=== PATIENT | female | born 1990 ===

== ENCOUNTER 2025-05-10 10:27 | Outpatient (CLI) | payer OTHER | END 2025-05-10 10:28 | disposition home or self-care (01) | LOC: PRENATAL 10:27 | PROVIDERS: ATTEND Obstetrics & Gynecology Maternal & Fetal Medicine | DX: O44.00 Complete placenta previa NOS or without hemorrhage, unspecified trimester (principal); Z3A.20 20 weeks gestation of pregnancy ==

== ENCOUNTER 2025-07-01 09:34 | Outpatient (CLI) | payer OTHER | END 2025-07-01 09:36 | disposition home or self-care (01) | LOC: PRENATAL 09:34 | PROVIDERS: ATTEND Obstetrics & Gynecology Maternal & Fetal Medicine | DX: O26.849 Uterine size-date discrepancy, unspecified trimester (principal); O44.00 Complete placenta previa NOS or without hemorrhage, unspecified trimester; O09.529 Supervision of elderly multigravida, unspecified trimester; Z3A.28 28 weeks gestation of pregnancy ==